=== PATIENT | male | born 1960 | race Caucasian/White ===

== ENCOUNTER 2018-09-15 13:21 | Emergency (ER) | payer OTHER ==
[~2018-09-15] VITALS: Ht 185.4 cm; Wt 121.1 kg
[2018-09-15] MEDS ORDERED: CELEBREX200 MG PO (13:48)
[2018-09-15] MEDS ORDERED: MEDROL4 MG PO (13:50)
[2018-09-15] MEDS ORDERED: OXYCODONE HCL10 MG PO (13:50)
[2018-09-15] MEDS ORDERED: METHOTREXATE2.5 MG PO (13:56)
== END 2018-09-15 14:22 | disposition home or self-care (01) ==
LOC: ED 13:21
DX: S29.012A Strain of muscle and tendon of back wall of thorax, initial encounter (principal); X58.XXXA Exposure to other specified factors, initial encounter; Y99.0 Civilian activity done for income or pay
CPT/HCPCS: 96372; 99283; J1885

== ENCOUNTER 2023-12-25 13:14 | Emergency (ER) | payer OTHER ==
[~2023-12-25] VITALS: Ht 185.4 cm; Wt 117.9 kg
[~2023-12-25 13:14] MED LIST: CELEBREX200 MG PO; MEDROL4 MG PO; METHOTREXATE2.5 MG PO; OXYCODONE HCL10 MG PO
[2023-12-25] MEDS ORDERED: LISINOPRIL-HCT1 EAC2 PO (13:28)
[2023-12-25] MEDS ORDERED: TRAMADOL HCL50 MG PO (13:28)
[2023-12-25] MEDS ORDERED: HYDROmorphone HCL 2 MG/ML VIAL IM ONE (14:00)
[2023-12-25] MEDS ORDERED: HYDROCODON-ACE1 EA10 PO (16:33)
[2023-12-25 16:50] VITALS: BP 139/79
== END 2023-12-25 16:51 | disposition home or self-care (01) ==
LOC: ED 13:14
DX: S32.592A Other specified fracture of left pubis, initial encounter for closed fracture (principal); I10 Essential (primary) hypertension; M19.90 Unspecified osteoarthritis, unspecified site; L40.9 Psoriasis, unspecified; W00.0XXA Fall on same level due to ice and snow, initial encounter; Y93.H3 Activity, building and construction; Y99.0 Civilian activity done for income or pay; Z96.642 Presence of left artificial hip joint; Z79.899 Other long term (current) drug therapy
CPT/HCPCS: 73502; 73700; 96372; 99284-25; J1170